=== PATIENT | male | born 1965 | race Caucasian/White ===

== ENCOUNTER 2017-06-23 14:22 | Emergency (ER) | payer SELFPAY ==
[2017-06-23 14:29] VITALS: TEMP 97.4
[2017-06-23] MEDS ORDERED: SODIUM CHLORIDE 0.9% 1000ML 1,000 ML IVS ONE (14:43)
--- NOTE | 2017-06-23 14:57 | ED.PDOC ---
History of Present Illness - General Chief Complaint: General Stated Complaint: dizziness,spitting up blood Time Seen by Provider: 06/23/17 14:43 Source: patient, RN notes reviewed, Vital Signs reviewed Exam Limitations: no limitations - History of Present Illness Initial Comments: Patient comes in with c/o of fatigue and lightheadedness all day. He was eating lunch and spit up blood. Tasted it in the back of his throat and spit it out. No vomiting. No AGUAYO, fever, chills, congestion, cough, chest pain, SOB, change in bowel habits or urinary symptoms. + sore throat Timing/Duration: 4-6 hours Severity: mild Improving Factors: nothing Worsening Factors: nothing Associated Symptoms: malaise Allergies/Adverse Reactions: Allergies NO KNOWN ALLERGY Allergy (Verified 06/23/17 14:29) Home Medications: Ambulatory Orders Atenolol [Tenormin] 25 mg PO DAILY 06/23/17 Review of Systems - Review of Systems Constitutional: States: malaise. Denies: chills, diaphoresis, fever EENTM: States: throat pain. Denies: ear pain, nose congestion, mouth pain, mouth swelling Respiratory: States: no symptoms reported. Denies: cough, short of breath Cardiology: States: no symptoms reported. Denies: chest pain Gastrointestinal/Abdominal: States: no symptoms reported. Denies: abdominal pain, constipation, diarrhea, nausea, vomiting Genitourinary: States: no symptoms reported Musculoskeletal: States: no symptoms reported Skin: States: no symptoms reported Neurological: States: other - lightheaded. Denies: headache, numbness, paresthesia, tingling, tremors, weakness All other Systems: No Change from Baseline Past Medical History (General) - Patient Medical History Hx Congestive Heart Failure: No Hx Hypertension: Yes Hx Diabetes: No Hx Gastroesophageal Reflux: Yes Surgical History: no surgical history - Vaccination History Hx Influenza Vaccination: No Hx Pneumococcal Vaccination: No - Social History Hx Tobacco Use: No Family Medical History - Family History Father Family History: Unknown Living Status: Unknown Physical Exam - Physical Exam General Appearance: Alert, Anxious, Comfortable, No apparent distress, Well Developed, Well Groomed, Well Hydrated, Well Nourished Eye Exam: bilateral normal Ears, Nose, Throat: hearing grossly normal, normal ENT inspection, normal pharynx - except small amt of blood on L posteroir pharynx Neck: non-tender, supple, normal inspection Respiratory: lungs clear, normal breath sounds, no respiratory distress, no accessory muscle use Cardiovascular/Chest: regular rate, rhythm, no gallop, no JVD, no murmur Gastrointestinal/Abdominal: normal bowel sounds, non tender, soft, no organomegaly, no pulsatile mass Extremity: normal range of motion, normal inspection Neurologic: no motor/sensory deficits, alert, normal mood/affect, oriented x 3 Skin Exam: normal color, warm/dry Comments: Vital Signs 06/23/17 14:26 Temperature 97.4 F L Pulse Rate [ 77 Left Brachial] Respiratory 16 Rate Blood Pressure 197/116 [Left Arm] O2 Sat by Pulse 96 Oximetry Progress - Progress Progress: 06/23/17 16:38 Patient is feeling better. Discussed that blood most likely came from his sinuses or a small posterior nose bleed. Will d/c home - Results/Orders Results/Orders: Laboratory Tests 06/23/17 06/23/17 14:55 14:55 WBC 5.3 RBC 5.02 Hgb 15.9 Hct 46.8 MCV 93.2 MCH 31.6 H MCHC 33.9 RDW 13.1 Plt Count 196 MPV 8.1 Absolute Neuts (auto) 3.10 Absolute Lymphs (auto) 1.70 Absolute Monos (auto) 0.30 Absolute Eos (auto) 0.10 Absolute Basos (auto) 0.00 Neutrophils % 58.2 Lymphocytes % 32.5 Monocytes % 6.1 Eosinophils % 2.3 Basophils % 0.9 Sodium 137 Potassium 3.6 Chloride 101 Carbon Dioxide 27 Anion Gap 12.6 BUN 16 Creatinine 1.00 BUN/Creatinine Ratio 16.0 Random Glucose 153 H Serum Osmolality 278.0 Calcium 9.7 Total Bilirubin 0.8 AST 37 ALT 32 Alkaline Phosphatase 50 Serum Total Protein 7.2 Albumin 4.5 Globulin 2.7 Albumin/Globulin Ratio 1.7 Departure - Departure Clinical Impression: Posterior epistaxis Time of Disposition: 16:39 Disposition: Discharge to Home or Self Care Condition: Good Departure Forms: ED Discharge - Pt. Copy, Patient Portal Self Enrollment Instructions: DI for Nosebleed Diet: resume usual diet Activity: increase activity as tolerated Home Medications: Ambulatory Orders Atenolol [Tenormin] 25 mg PO DAILY 06/23/17
[2017-06-23 17:02] VITALS: BP 154/100; O2SAT 97
== END 2017-06-23 17:04 | disposition home or self-care (01) ==
LOC: ER 14:22
DX: R04.0 Epistaxis (principal); I10 Essential (primary) hypertension; K21.9 Gastro-esophageal reflux disease without esophagitis
CPT/HCPCS: 36415; 80053; 85025; J7030